=== PATIENT | female | born 1985 | race Caucasian/White ===

== ENCOUNTER 2019-08-03 14:16 | Outpatient (CLI) | payer BC, SELFPAY ==
--- NOTE | ~2019-08-03 | US_ITS ---
US thyroid INDICATION: Follow-up thyroid nodule TECHNIQUE: Real-time sonographic images of the thyroid gland were obtained. COMPARISON: No prior studies for comparison. FINDINGS: The right thyroid lobe measures 5.8 x 1.8 x 1.6 cm. The left thyroid lobe measures 5.5 x 1 .5 x 1.7 cm. There is heterogeneous echotexture and echogenicity throughout the thyroid gland. There is a focus 4 mm hypoechoic nodule of the left lobe, likely benign.. Normal vascular flow is present. IMPRESSION: 1. Hypoechoic 4 mm left thyroid nodule, likely benign. 2: Mildly enlarged heterogeneous thyroid echotexture. Reviewed, dictated and finalized at location A. ENSER CLEANER
== END 2019-08-03 14:17 ==
PROVIDERS: PCP Emergency Medicine; Visit Provider Emergency Medicine
DX: E04.1 Nontoxic single thyroid nodule (principal)
CPT/HCPCS: 76536

== ENCOUNTER 2021-06-24 11:33 | Outpatient (CLI) | payer BC, SELFPAY ==
--- NOTE | ~2021-06-24 | US_ITS ---
EXAMINATION: US thyroid DATE: 06/24/2021 12:00 INDICATION: Thyroid nodule. TECHNIQUE: Multiple ultrasound images of the thyroid were obtained. COMPARISON: Ultrasound 08/03/2019 FINDINGS: The right thyroid lobe measures 6.0 x 1.6 x 1.5 cm. The left thyroid lobe measures 5.4 x 1.5 x 1.8 c m. The thyroid demonstrates coarsened echotexture. Vascularity is normal. In the left thyroid lobe, there is an 8 mm solid, hypoechoic, [id number]-[id number] nodule with ill-defined margin without echogenic foci (TI-RADS TR4). IMPRESSION: 1. Small thyroid nodule, likely not clinically significant. No follow-up is needed. Reviewed, dictated and finalized at location B. TABLE FARM MANAGER IMPRESSION: 1. Small thyroid nodule, likely not clinically significant. No follow-up is nee ded.
== END 2021-06-24 11:34 ==
PROVIDERS: PCP Emergency Medicine; Visit Provider Emergency Medicine
DX: E04.1 Nontoxic single thyroid nodule (principal)
CPT/HCPCS: 76536

== ENCOUNTER 2024-06-17 08:06 | Emergency (ER) | payer OTHER, SELFPAY ==
[2024-06-17 08:16] VITALS: BP 146/92; PULSE 73; RESP 16; TEMP 36.6; O2SAT 98
== END 2024-06-17 10:31 | disposition left against medical advice (07) ==
PROVIDERS: PCP Emergency Medicine
DX: H57.89 Other specified disorders of eye and adnexa (principal)
CPT/HCPCS: 99199

== ENCOUNTER 2024-10-16 09:47 | Outpatient (CLI) | payer OTHER, SELFPAY ==
[2024-10-16 11:15] LABS: Basophils Percent Auto 0.4 % (0.2-1.2); Eosinophils Absolute Auto 0.1 K/mm3 (0-0.3); Eosinophils Percent Auto 1.6 % (0-4.4); Hematocrit 40.6 % (37.0-47.0); Immature Granulocyte Absolute 0.02 K/mm3 (0.00-0.031); Immature Granulocyte Percent A 0.3 % (0-0.5); Lymphocytes Absolute Auto 2.54 K/mm3 (0.9-3.2); Lymphocytes Percent Auto 34.8 % (18.3-44.2); Mean Corpuscular Hemoglobin 28.8 pg (26-34); Mean Platelet Volume 8.5 fl (7.4-10.4); Monocytes Absolute Auto 0.4 K/mm3 (0.1-0.6); Monocytes Percent Auto 4.9 % (2.6-8.5); Neutrophils Absolute Auto 4.2 K/mm3 (1.3-6.7); Platelet Count Result 449 k/mm3 (150-375); Red Blood Count 4.51 M/mm3 (4.2-5.4); Red Cell Distribution Width 12.5 % (11.5-14.5); White Blood Count 7.3 K/mm3 (4.5-10.0)
[2024-10-16 11:35] LABS: Alanine Aminotransferase 33 U/L (6-35); Albumin Level 4.7 g/dL (3.5-5.1); Alkaline Phosphatase 69 U/L (38-126); Anion Gap 11 mmol/L (4-12); Aspartate Amino Transferase 33 U/L (14-36); Bilirubin,Total 0.4 mg/dL (0.2-1.3); Blood Urea Nitrogen 21 mg/dL (7-17); Calcium 9.5 mg/dL (8.4-10.2); Carbon Dioxide 25 mmol/L (22-30); Chloride 103 mmol/L (98-107); Estimated Glomerular Filt Rate > 60; Glucose 92 mg/dL (65-110); Potassium 4.2 mmol/L (3.4-5.0); Sodium 139 mmol/L (137-145)
--- OUTSIDE RECORDS SUMMARY | 2024-10-17 11:40 | XMS_ITS | Encounter Summary ---
Author Organization [facility] Address [address] [place] [id number] Care Team Providers Care Respiratory Therapy Technician Name Role Phone Alex Preciado MD Primary Care Provider Encounter Details Date Type Department Care Team (Latest Contact Info) Description 04/22/2018 Abstract [facility] , Chay Coley MD Social History Tobacco Use Types Packs/Day Years Used Date Smoking Tobacco: Never Assessed Comments Unknown Sex and Gender Information Value Date Recorded Sex Assigned at Not on file Legal Sex Female 5:52 PM CDT Gender Identity Not on file Sexual Orientation Not on file documented as of this encounter Plan of Treatment Not on file documented as of this encounter Visit Diagnoses Not on filedocumented in this encounter Care Teams Respiratory Therapy Technician Relationship Specialty Start Date End Date Alex Preciado MD [address] [phone] PCP - General 07/31/16 documented as of this encounter
--- OUTSIDE RECORDS SUMMARY | 2024-10-17 11:40 | XMS_ITS | Clinical Summary ---
Author Organization [facility] Address [address] [place] [id number] Care Team Providers Care Notch Grinder Name Role Phone Alex Preciado MD Primary Care Provider [phone] Social History Tobacco Use Types Packs/Day Years Used Date Smoking Tobacco: Never Assessed Comments Unknown Sex and Gender Information Value Date Recorded Sex Assigned at Not on file Legal Sex Female 5:52 PM CDT Gender Identity Not on file Sexual Orientation Not on file Last Filed Vital Signs Vital Sign Reading Time Taken Comments Blood Pressure 102/70 10/03/2016 10:19 AM CDT Pulse 84 03/26/2016 11:14 AM CDT Temperature - - Respiratory Rate - - Oxygen Saturation - - Inhaled Oxygen Concentration - - Weight 77.1 kg (170 lb) 10/03/2016 10:19 AM CDT Height 156.2 cm (5' 1.5 ) 10/03/2016 10:19 AM CD T Body Mass Index 31.6 10/03/2016 10:19 AM CDT Plan of Treatment Health Maintenance Due Date Last Done Comments Cervical Cancer Screening Pa p Smear (Age 30 to 64) Every 3 Years 1985 Annual Physical 1988 Hepatitis C 2003 Hepatitis B Vaccines (1 of 3 - 19+ 3-dose series) 2004 Cervical Cancer Screening Pa p with HPV Testing (Age 30 to 64) Every 5 Years 2015 Cervical Cancer Screening with HPV 2015 DTaP, Tdap and Td Vaccines ( 2 - Td or Tdap) 06/17/2022 06/17/2012 COVID-19 Vaccine (2023-2 5 season) 2024 HPV Vaccines Aged Out No longer eligi ble based on patient's age to complete this topic Meningococcal B Vaccine Aged Out No l onger eligible based on patient's age to complete this topic Meningococcal Vaccine Aged Out No shimon bonilla eligible based on patient's age to complete this topic Pneumococcal Vaccine: Pediat rics (0 to 5 Years) and At-Risk Patients (6 to 49 Years) Aged Out No longer eligi ble based on patient's age to complete this topic RSV Immunizations Under 20 Months Aged Out No longer eligible based on patient's age to complete this topic Care Teams Notch Grinder Relationship Specialty Start Date End Date Alex Preciado MD [address] [phone] PCP - General 07/31/16
--- OUTSIDE RECORDS SUMMARY | 2024-10-17 11:40 | XMS_ITS | Clinical Summary ---
Author Organization [email or web address] Address [address] [place] [address] Care Team Providers Care Director Of Archives Name Role Phone Melecio Hills MD Primary Care Provider [phone] Source Comments [email or web address],non-owned Affiliates and Associated Physician Practices is amultiple site organization consisting of ambulatory clinics and hospital sitesin [place], [place], [place] and [place]. This disclosure is being madepursuant to the Care Everywhere program and may not contain all information available regarding this patient. Last updated 18.[email or web address] Allergies No known active allergies Medications * Be aware that medications may not be up to date on this document. Alwaysverify current medications with the patient. Adderall XR 20 MG capsule TAKE 1 CAPSULE BY MOUTH ONCE DAILY IN THE MORNING 08/07/2022 Active sertraline (Zoloft) 100 MG tablet Take 1 (one) tablet by mouth once daily 07/05/2022 Active zolpidem (Ambien) 5 MG tablet Take 1 (one) tablet by mouth nightly as needed 08/01/2022 Active Active Problems Problem Noted Date Diagnosed Date Mixed anxiety and depressive disorder 08/29/2022 10/18/2022 Lipoma of face 08/17/2022 Family History Medical History Relation Name Comments None Known Father None Known Mother Relation Name Status Comments Father Mother Social History Tobacco Use Types Packs/Day Years Used Date Smoking Tobacco: Never Tobacco Cessation:Counseling Given: Not Answered Comments Unknown Sex and Gender Information Value Date Recorded Sex Assigned at Not on file Legal Sex Female 5:47 PM HAND SEWER Gender Identity Not on file Sexual Orientation Not on file Last Filed Vital Signs Vital Sign Reading Time Taken Comments Blood Pressure 127/85 10/05/2022 3:45 PM CDT Pulse 88 10/05/2022 3:45 PM CDT Temperature 36.4 C (97.5 F) 10/05/2022 3:45 PM CDT Respiratory Rate 20 10/05/2022 3:45 PM CDT Oxygen Saturation 99% 10/05/2022 3:45 PM CDT Inhaled Oxygen Concentration - - Weight 93 kg (205 lb) 10/05/2022 3:45 PM CDT Height 154.9 cm (5' 1 ) 10/05/2022 3:45 PM CDT Body Mass Index 38.73 10/05/2022 3:45 PM CDT Plan of Treatment Health Maintenance Due Date Last Done Comments HIV SCREENING 2000 HEPATITIS C SCREENING 07/11/2003 DTAP/TDAP/TD VACCINES (1 - Tdap) 2004 HEPATITIS B VACCINE (1 of 3 - 19+ 3-dose series) 2004 COVID-19 VACCINE (1 - 2023-2 5 season) 2024 DEPRESSION SCREENING 06/17/2024 INFLUENZA VACCINE (Season Ended) 2025 PAP SMEAR 08/28/2025 08/28/2022 ZOSTER VACCINE (1 of 2) 2035 HIB VACCINE Aged Out No longer eligi ble based on patient's age to complete this topic HPV VACCINE Aged Out No longer eligi ble based on patient's age to complete this topic MENINGOCOCCAL (Group B) VACC INE SHARED DECISION-MAKING Aged Out No longer eligibl e based on patient's age to complete this topic MENINGOCOCCAL GROUPS A/C/Y/W VACCINE Aged Out No longer eligible b ased on patient's age to complete this topic PNEUMOCOCCAL VACCINE Aged Out No long er eligible based on patient's age to complete this topic Insurance [facility] [address] Care Teams Director Of Archives Relationship Specialty Start Date End Date Melecio Hills MD PCP - General Family Medicine 02/06/19
--- OUTSIDE RECORDS SUMMARY | 2024-10-17 11:40 | XMS_ITS | Continuity of Care Document ---
Author Organization [facility] Address [address] [place] [address] [place] [address] Phone Care Team Providers Care Residential Mortgage Underwriter Name Role Phone Melecio Hills MD Unavailable Unavailable Allergies, Adverse Reactions, Alerts Substance Reaction Status Criticality No Known Allergies Active No Inform ation Medications Medication Instructions Dosage Effective Dates (start - stop) Status Comments Ambien 5 mg tablet take 1 Tablet by oral route every bedtime at bedtime as needed 5 MG - Active avoid driving or operate machines, PRN for insomnia Adderall XR 20 mg capsule,extended release take 1 capsule by oral route every day in the morning - Active Zoloft 100 mg tablet take 1 tablet by oral route every day 100 MG - Active Procedures Procedure Date OFFICE/OUTPATIENT VISIT, EST PREV VISIT, EST, AGE 18-39 OFFICE/OUTPATIENT VISIT, EST OFFICE/OUTPATIENT VISIT, EST OFFICE/OUTPATIENT VISIT, EST OFFICE/OUTPATIENT VISIT, EST OFFICE/OUTPATIENT VISIT, EST OFFICE/OUTPATIENT VISIT, EST PREV VISIT, EST, AGE 18-39 OFFICE/OUTPATIENT VISIT, EST OFFICE/OUTPATIENT VISIT, EST OFFICE/OUTPATIENT VISIT, EST OFFICE/OUTPATIENT VISIT, EST PREV VISIT, EST, AGE 18-39 OFFICE/OUTPATIENT VISIT, EST OFFICE/OUTPATIENT VISIT, EST OFFICE/OUTPATIENT VISIT, EST PREV VISIT, EST, AGE 18-39 OFFICE/OUTPATIENT VISIT, EST OFFICE/OUTPATIENT VISIT, EST OFFICE/OUTPATIENT VISIT, EST OFFICE/OUTPATIENT VISIT, EST OFFICE/OUTPATIENT VISIT, EST OFFICE/OUTPATIENT VISIT, EST OFFICE/OUTPATIENT VISIT, NEW Advance Directives Directive Yes / No Effective Date File Name No Information Encounters Encounter Description Practice Location Reason(s) For Visit Diagnoses Date Provider Providers Copied on Encounter [facility], [address], [place], [place], [address], [place] tel:[phone] [facility] No Information 3 Reinier Majano. [address], [place], [place], [address] , [place]. tel:[phone] [facility], [address], [place], [place], [address], [place] tel:[phone] [facility] No Information 3 Reinier Majano. [address], [place], [place], [address] , [place]. tel:[phone] OFFICE/OUTPA TIENT VISIT, EST [facility], [address], [place], [place], [address], [place] tel:[phone] [facility] ADD (chief complaint) Attention deficitGeneralized Anxiety Disorder 3 Reinier Majano. [address], [place], [place], [address] , [place]. tel:[phone] [facility], [address], [place], [place], [address], [place] tel:[phone] [facility] No Information 3 Reinier Majano. [address], [place], [place], [address] , [place]. tel:[phone] PREV VISIT, EST, AGE 18-39 [facility], [address], [place], [place], [address], [place] tel:[phone] [facility] Medicine physical (chief complaint) Encounter for general adult medical exam w abnormal findingsMixed hyperlipidemiaPrima ry central sleep apneaAttention deficitPrimary insomniaGeneralized Anxiety Disorder 3 Reinier Majano. [address], [place], [place], [address] , [place]. tel:[phone] OFFICE/OUTPA TIENT VISIT, [facility], [address], [place], [place], [address], [place] tel:[phone] [facility] ADD (chief complaint) HTN (chief complaint) Attention deficitEssential (primary) hypertension 3 Reinier Majano. [address], [place], [place], [address] , [place]. [phone] OFFICE/OUTPA TIENT VISIT, [facility], [address] [place] [address], [place] tel:[phone] [facility] insomnia1 (chief complaint) ADD (chief complaint) anxiety1 (chief complaint) weight gain1 (chief complaint) Attention deficitGeneralized Anxiety DisorderAbnormal weight gainPrimary insomnia 2 Reinier Majano. [address], [place], [place], [address] , [place]. [phone] OFFICE/OUTPA TIENT VISIT, [facility], [address] [place] [address], [place] tel:[phone] [facility] ADD (chief complaint) Attention deficit 2 Reinier Majano. [address], [place], [place], [address] , [place]. [phone] OFFICE/OUTPA TIENT VISIT, [facility], [address] [place], [address], [place] tel:[phone] [facility] HLP (chief complaint) ADD (chief complaint) insomnia1 (chief complaint) Attention deficitPrimary insomniaMixed hyperlipidemia 2 Reinier Majano. [address], [place], [place], [address] , [place]. tel:[phone] OFFICE/OUTPA TIENT VISIT, EST [facility], [address], [place], [place], [address], [place] tel:[phone] [facility] Medicine ADD (chief complaint) Attention deficit 2 Reinier Majano. [address], [place], [place], [address] , [place]. tel:[phone] PREV VISIT, EST, AGE 18-39 [facility], [address], [place], [place], [address], [place] tel:[phone] [facility] physical (chief complaint) Encounter for general adult medical exam w abnormal findingsMixed hyperlipidemiaPrima ry insomniaThyroid nodulePrimary central sleep apneaDeviated nasal septumEpidermal cystGeneralized Anxiety Disorder 2 Reinier Majano. [address], [place], [address] , [place]. tel:[phone] OFFICE/OUTPA TIENT VISIT, EST [facility], [address], [place], [place], [address], [place] tel:[phone] [facility] thyroid nodule1 (chief complaint) HLP (chief complaint) vitamin D1 (chief complaint) sleep apnea1 (chief complaint) weight loss1 (chief complaint) HyperlipidemiaThyro id noduleVitamin D deficiency, unspecifiedSleep apneaDeviated nasal septum 2 Reinier Majano. [address], [place], [place], [address] , [place]. tel:[phone] Referring Provider: Melecio Hills [address], [place], [place], [address]. tel:[phone] OFFICE/OUTPA TIENT VISIT, EST [facility], [address], [place], [place], [address], [place] tel:[phone] [facility] thyroid nodule1 (chief complaint) fatigue1 (chief complaint) anxiety1 (chief complaint) HLP (chief complaint) Thyroid noduleFatigueHyperl ipidemiaInsomnia May- 1 Reinier Purcell [address], [place], [place], [address] , [place]. tel:[phone] Referring Provider: Sonny Whitehead [address], [place], [place], [address]. tel:[phone] OFFICE/OUTPA TIENT VISIT, EST [facility], [address], [place], [place], [address], [place] tel:[phone] [facility] Medicine insomnia1 (chief complaint) anxiety1 (chief complaint) Insomnia, unspecifiedGenerali zed Anxiety Disorder Feb- 1 Reinier Purcell [address], [place], [place], [address] , [place]. [phone] Referring Provider: Sonny Whitehead [address], [place], [place], [address]. tel:[phone] PREV VISIT, EST, AGE 18-39 [facility], [address], [place], [place], [address], [place] tel:[phone] [facility] Medicine physical (chief complaint) Thyroid noduleFatigueHyperl ipidemiaGeneralized Anxiety DisorderInsomniaEnc ounter for general adult medical exam w abnormal findings 1 Reinier Purcell [address], [place], [place], [address] , [place]. tel:[phone] Referring Provider: Sonny Whitehead [address], [place], [place], [address]. tel:[phone] OFFICE/OUTPA TIENT VISIT, EST [facility], [address], [place], [place], [address], [place] tel:[phone] [facility] obesity1 (chief complaint) insomnia1 (chief complaint) Insomnia, unspecifiedAbnormal weight gain Mar- 0 Reinier Purcell [address], [place], [place], [address] , [place]. tel:[phone] Referring Provider: Sonny Whitehead [address], [place], [place], [address]. tel:[phone] OFFICE/OUTPA TIENT VISIT, EST [facility], [address], [place], [address], [place] tel:[phone] [facility] HLP (chief complaint) insomnia1 (chief complaint) thyroid (chief complaint) weight1 (chief complaint) FatigueHyperlipidem iaThyroid noduleInsomniaAbnor mal weight gain 0 Reinier Purcell [address], [place], [address] , [place]. tel:[phone] Referring Provider: Sonny Whitehead [address], [place], [place], [address]. tel:[phone] PREV VISIT, EST, AGE 18-39 [facility], [address], [place], [place], [address], [place] tel:[phone] [facility] PHysical (chief complaint) Encounter for general adult medical exam w abnormal findingsHyperlipide miaThyroid noduleAbnormal weight gainInsomnia, unspecifiedFatigue 0 Reinier Purcell [address], [place], [address] , [place]. tel:[phone] Referring Provider: Sonny Whitehead [address], [place], [place], [address]. tel:[phone] OFFICE/OUTPA TIENT VISIT, EST [facility], [address], [place], [address], [place] tel:[phone] [facility] thyroid nodule1 (chief complaint) insomnia1 (chief complaint) anxiety1 (chief complaint) HLP (chief complaint) InsomniaAnxiety disorder, unspecifiedThyroid noduleHyperlipidemi aEncounter for STD screening 0-201 9 Reinier Purcell [address], [place], [place], [address] , [place]. tel:[phone] OFFICE/OUTPA TIENT VISIT, [facility], [address], [place], [place], [address], [place] tel:[phone] [facility] insomnia1 (chief complaint) weight1 (chief complaint) thyroid1 (chief complaint) Insomnia, unspecifiedDisorder of thyroid, unspecifiedAbnormal weight gain 9 Reinier Majano. [address], [place], [address] , [place]. [phone] OFFICE/OUTPA TIENT VISIT, [facility], [address], [place], [address], [place] tel:[phone] [facility] weight1 (chief complaint) thyroid1 (chief complaint) insomnia1 (chief complaint) anxiety1 (chief complaint) Body mass index (BMI) 35.0-35.9, adultInsomnia, unspecifiedDisorder of thyroid, unspecifiedAnxiety disorder, unspecified 9 Reinier Majano. [address], [place], [place], [address] , [place]. [phone] OFFICE/OUTPA TIENT VISIT, [facility], [address], [place], [address], [place] tel:[phone] [facility] weight gain1 (chief complaint) Abnormal weight gainDisorder of thyroid, unspecified 8 Reinier Majano. [address], [place], [place], [address] , [place]. [phone] Referring Provider: Melecio Hills [address], [place], [place], [address]. tel:[phone] OFFICE/OUTPA TIENT VISIT, [facility], [address], [place], [place], [address], [place] tel:[phone] [facility] insomnia1 (chief complaint) anxiety1 (chief complaint) thyroid1 (chief complaint) InsomniaAnxiety disorder, unspecifiedDisorder of thyroid, unspecifiedBody mass index (BMI) 35.0-35.9, adult 8 Hills Melecio. [address], [place], [place], [address] , [place]. tel:[phone] Referring Provider: Melecio Hills, [address], [place], [place], [address]. tel:[phone] OFFICE/OUTPA TIENT VISIT, [facility], [address], [place], [place], [address], [place] tel:[phone] [facility] Physical (chief complaint) Encntr for general adult medical exam w/o abnormal findingsInsomnia, unspecifiedAnxiety disorder, unspecified 8 Reinier Majano. [address], [place], [place], [address] , [place]. tel:[phone] Family History Family Member Type Diagnosis Age At Onset Mother Problem (finding) Alive and well Problem (finding) Family history of renal failure, on dialysis, CHF Payers Payer name Insurance type Covered green party ID Authoriza tion(s) No Information Social History Type Description Quantity Date Captured Comments Alcohol Use Details Unknown Caffeine Use Details Unknown Tobacco Use Status No Information Smoking Status No Information Sex Female Chief Complaint And Reason For Visit No Information Plan Of Treatment Date Type Action Status Goal Special diet education compl eted Goal Special diet education compl eted Goal Special diet education compl eted Goal Special diet education compl eted Goal Prescribed dietary intake co mpleted Referral Ordered: Otolaryngology (related to Deviated nasal septum) ordered Referral Ordered: Referrals: Otolaryngology. Evaluate and treat ordered Referral Ordered: SLEEP STUDY, ATTENDED ordered Referral Ordered: US THYROID ordered History Of Present Illness Encounter Date Complaint History Of Prese nt Illness ADD Patient has ADD. Patient has inattentive type. Patient feels scatterbrained. Patient feel poor focus and difficulty completing tasks. Patient states that Adderall is helping with symptoms. Patient feels more focused. Pt feels more energy. Patient denies any headache, dry mouth, headache, chest pain. Patient denies any appetite loss. physical Pt needs annual physical Pt has chronic anxiety and depression Pt doing ok with zoloft Pt needs refill Pt denies any suicidal or homicidal thought Pt denies any crying spells. Pt has insomnia, Pt takes ambien and doing ok pt has ADD. Pt doing ok with adderall Pt has sleep apnea Pt does not want to try CPAP Pt is obese .Pt denies any other complaints ADD Patient has ADD. Patient has inattentive type. Patient feels scatterbrained. Patient feel poor focus and difficulty completing tasks. Patient states that Adderall is helping with symptoms. Patient feels more focused. Pt feels more energy. Patient denies any headache, dry mouth, headache, chest pain. Patient denies any appetite loss. HTN Pt has HTN. Pt d enies any chest pain or headache. insomnia1 pt has chronic i nsomnia Pt takes ambien. Pt needs refilled. Pt transferred the script to [place] during vacation but she only got 30 pills instead of 90. ADD Pt has ADD Pt willis s been taking concerta but she feels that she has rather flat affect while on concerta and she does not feel any emotions while on concerta. Her mom is a psychiatrist out of state and suggested her to try Adderall XR instead . anxiety1 Pt has chronic a nxiety and depression. Pt has been taking zoloft for long time and she states that her mood is well controlled Pt started to feel some flat affect since starting to take concerta recently. Pt denies any suicidal or homicidal thought Pt denies any crying spells weight gain1 Pt has been gain ing weight due to poor life style .Pt does not diet and exercise. Pt is not very physically active ADD Pt has history o f ADD, inattentive type Pt doing well with concerta. Pt feels more energy and more focused and she can handle stress much better with concerta. Pt is wondering about higher dose of concerta. Pt denies any side effects HLP Pt has not been taking crestor. Pt is working on diet and exercise. Pt is noncompliant. Pt also has not done lab work insomnia1 Pt has chronic i nsomnia Pt has mild sleep apnea but she does not want to use cpap. Pt takes ambien and she wants it refilled. ADD Patient has ADD. Patient has inattentive type. Patient feels scatterbrained. Patient feel poor focus and difficulty completing tasks. Patient states that concerta is helping with symptoms. Patient feels more focused. Pt feels more energy. Patient denies any headache, dry mouth, headache, chest pain. Patient denies any appetite loss. Pt overall feels great with concerta ADD Pt has been havi ng ADD symptoms. Pt has more responsibility at work recently and she feels overwhelmed and unable to focus and concentrate and she has been performing poorly at work. Pt states that she always has some ADD symptoms even back in high school but she was never treated. pt states that her ADD symptoms are affecting her work now. physical Pt needs annual physical. Pt has HLP Pt is noncompliant with crestor. Pt takes crestor PRN only? Pt denies any myalgia, Pt has chronic insomnia Pt takes ambien qhs and doing ok. Pt has mild sleep apnea. Pt states that she no longer feels fatigue and she does not want to use cpap. Pt has chronic anxiety and depression. P takes zoloft and doing ok. Pt denies any suicidal or homicidal thought. Pt denies any crying spells. Pt has a small cystic spot on forehead for several months. Pt denies any pain ,Pt states that it is soft and not itching. weight loss1 Pt has been work ing on exercise and is trying to lose weight intentionally Pt denies any nausea, vomiting, appetite loss, early satiety, change of bowel, GI bleeding, etc sleep apnea1 Pt has mild slee p apnea with chronic fatigue. Pt denies any trouble with breathing at night Pt does snore at night Pt has mild sleep apnea. Pt states that she has history of deviated septum with chronic nasal congestion .Pt denies any sinus drainage thyroid nodule1 Pt has benign th yroid nodule Pt denies any dysphagia or neck pain her TSh is ok. Thyroglobulin is borderline high. HLP Pt has HLP. Pt i s not on any diet vitamin D1 Pt has low vitam in D. thyroid nodule1 Pt has history o f mild thyroid nodule. Pt denies any dysphagia or neck pain. Pt has been noncompliant with endo referral or repeat thyroid ultrasound. Her thyroid is slightly enlarged. fatigue1 Pt c/o feeling e xtremely fatigue, foggy brained, unable to focus and concentrate, short term memory loss, day time irritability for long time. Pt also snores. Pt denies any headache. Pt states that she fees tired from the moment she wakes up until bedtime. Pt has been noncompliant with sleep study. She recently visited her mom who is also a physician who told her that she snores and recommend her to get the sleep study done anxiety1 Pt has chronic a nxiety and depression Pt takes zoloft and doing ok Pt denies any suicidal or homicidal thought. Pt denies any crying spells. Pt also has chronic insomnia and she takes ambien qhs and doing ok. pt denies waking up at night with difficulty of breathing HLP Pt has HLP. Pt i s not on any diet. insomnia1 Pt has chronic i nsomnia Pt takes ambien qhs and doing ok. Pt denies any snoring or fatigue anxiety1 Pt has chronic a nxiety and depression Pt takes zoloft and doing ok Pt denies any suicidal or homicidal thought. Pt denies any crying spells physical Pt needs annual physical Pt has anxiety and depression with insomnia. Pt takes zoloft and ambien and doing ok. Pt denies any suicidal or homicidal thought Pt denies any crying spells. Pt denies any snoring or fatigue and she did not do sleep study. Pt states that fatigue resolved Pt also has thyroid nodule. Pt denies any dysphagia or neck pain .Pt did not follow up with endo. Pt did not do TFTs. Pt overall feels well. Pt has been diet and exercising and she lost some weight as well. obesity1 Pt just finished phentermine x 3 months recently and she is in between phentermine. Pt denies any weight gain Pt denies any chest pain or headache. insomnia1 Pt needs ambien refilled. Pt recently went to [place] and she had to transfer ambien to [place] and she can not get it transferred back to [place]. Pt is leaving town for work in the next several days .Pt wants refill ambien HLP Pt has HLP. Pt h as not been taking crestor at all Pt states that she does not want to take any medication for HLP Pt is working on diet and exercise insomnia1 Pt has insomnia Pt takes ambien qhs and doing ok Pt has sleep apnea symptoms but she is noncompliant with cpap. Pt feels fatigue ,Pt denies any sob thyroid Pt has stable th yroid nodule Pt denies any dysphagia or neck pain Pt castro snot want to see endo weight1 Pt takes phenter mine daily for weight loss Pt denies any headache or chest pain . PHysical Pt needs annual physical pt feels very worsening fatigue during last 3 months .Pt feels dry skin. Pt has been gaining weigh despite diet and exercising Pt feels thirsty and she drinks a lot of water and she urinate a lot also Pt denies any dysphagia Pt has slightly enlarged thyroid Pt denies any GERD or headache. Pt feels very tired in the morning and getting worse throughout the day Pt feels that she can sleep all day Pt denies any depression or any anxiety .Pt denies any snoring at night. Pt notices more abdominal fat Pt does not have any period due to IUD Pt denies any other complaints thyroid nodule1 Pt has thyroid n odule Pt denies any dysphagia or neck pain pt has borderline elevated TFTs insomnia1 Pt denies any sn oring or any trouble with breathing at night pt needs ambien refilled anxiety1 Pt has anxiety a nd depression, Pt takes zoloft and doing ok Pt denies any suicidal or homicidal thought Pt denies any crying spells HLP Pt is on low fat and low carb diet. insomnia1 Pt has chronic i nsomnia. pt takes ambien and doing ok. pt denies any snoring or any trouble with breathing at night. pt denies any fatigue weight1 Pt has not had p hentermine for several months. Pt wants to get back to phentermine. Pt did feels more energy and she did lose some weight on it. Pt denies any chest pain or headache with phentermine thyroid1 Pt has mild thyr omegaly Pt has mild elevated TFTs. Pt denies any dysphagia or throat pain. Pt is noncompliant with thyroid ultrasound weight1 Pt lost 5 pounds with phentermine. Pt feels more energy with phentermine Pt denies any dry mouth or headache or any side effects thyroid1 Pt has mildly el evated thyroglobulin. Her TSH is ok. Pt denies any dysphagia insomnia1 Pt has insomnia Pt denies any snoring anxiety1 Pt has chronic a nxiety an depression Pt doing ok with zoloft and xanax PRn Pt denies any suicidal or homicidal thought. Pt denies any crying spells weight gain1 Pt has been gain ing weight despite diet and exercise and trying to lose weight on her own. Pt denies any fatigue Pt took phentermine 6 months ago which helped her weight loss. Pt has not had any phentermine for 3 months. Pt denies any chest pain or headache with phentermine insomnia1 Pt has insomnia Pt takes ambien qhs PRN. Pt denies any snoring or any trouble with breathing at night. Pt doing ok with ambien qhs. pt states that she could not sleep without ambien anxiety1 Pt has chronic a nxiety and depression. Pt takes zoloft and doing ok pt denies any suicidal or homicidal thought. Pt denies any crying spells thyroid1 Pt has ? thyrome samra .Pt denies any trouble with swallowing. Pt denies any sore throat Physical Pt needs annual phyical. Pt has chornic anxity and mild depression, P ttakes zolot and doing okPt deneis any suicidal or homiicdal thought. Pt has chornic insomnia P takes ambien qhs and doing ok. Pt denies any snoring or any trouble with breathing at night Pt denies any other complaints Instructions Date Instruction Additional Infor mation Special diet education Related t o Body mass index (BMI) 35.0-35.9, adult Increase physical activity Relat ed to Insomnia Weight management Related to Ins omnia Weight management Related to Ins omnia Special diet education Related t o Body mass index (BMI) 35.0-35.9, adult Weight management Related to Ins omnia, unspecified Increase physical activity Relat ed to Insomnia, unspecified Special diet education Related t o Body mass index (BMI) 35.0-35.9, adult Special diet education Related t o Body mass index (BMI) 36.0-36.9, adult Weight management Related to Abn ormal weight gain Weight management Related to Ins omnia Increase physical activity Relat ed to Insomnia Prescribed dietary intake Relate d to Body mass index (BMI) 35.0-35.9, adult Prescribed Diet Educ ation/Lifestyle Education Regarding Diet Related to Dietary Surveillance and Counseling Increase activity. Related to En cntr for general adult medical exam w/o abnormal findings Perform monthly self breast examinations. Related to Encntr for general adult medical exam w/o abnormal findings Prescribed Activity and Exercise Education Related to Dietary Surveillance and Counseling Assessments Type Assessment Date No Information
--- OUTSIDE RECORDS SUMMARY | 2024-10-17 11:40 | XMS_ITS | Encounter Summary ---
Author Organization [facility] Healthcare Address [address] [place] [address] Care Team Providers Care Timber Harvester Operator Name Role Phone Radha Kaye NP Primary Care Provider Encounter Details Date Type Department Care Team (Late st Contact Info) Description 10/08/2024 Results Follow-Up [facility] Medical Group Convenient Care at [address] [address] Ana Mcclendon NP [address] [place] [address] [address] [place] [address] Social History Tobacco Use Types Packs/Day Years Used Date Smoking Tobacco: Never Assessed Comments Unknown Sex and Gender Information Value Date Recorded Sex Assigned at Not on file 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 Patient expressed understanding of negative throat culture. * Result Encounter Note - Brenda Downey LPN - 10/08/2024 8:12 AM CDT LVM for pt to return call to clinic to notify them of labs results. * Result Encounter Note - Ana Mcclendon NP - 10/08/2024 7:39 AM CDT Please alert patient of negative strep culture. Patient should continue tylenol/ibuprofen as directed for discomfort and f/u with PCP if symptoms persist. documented in this encounter Plan of Treatment Not on file documented as of this encounter Visit Diagnoses Not on filedocumented in this encounter Additional Health Concerns Infection Onset Date Last Indicated Resolved Time Influenza, adult 10/06/2024 10/06/2024 10/13/2024 3:05 AM CDT documented as of this encounter Care Teams Timber Harvester Operator Relationship Specialty Start Date End Date Radha Kaye NP [facility] [address] [address] PCP - General Nurse Practitioner 10/06/24 documented as of this encounter
--- OUTSIDE RECORDS SUMMARY | 2024-10-17 11:40 | XMS_ITS | Clinical Summary ---
Author Organization [facility] Address [address] [place] [address] Care Team Providers Care Cutter Plastics Rolls Name Role Phone Radha Kaye NP Primary Care Provider Allergies No known active allergies Medications benzonatate (TESSALON) 100 mg capsule TAKE 1 CAPSULE BY MOUTH EVERY 8 HOURS NEEDED Active dextroamphetami ne-amphetamine XR (ADDERALL XR) 20 mg 24 hr capsule Take by mouth daily Active levonorgestreL (Mirena) IUD Take by intrauterine route. Active sertraline (ZOLOFT) 100 mg tablet TAKE 1.5 TABLETS BY MOUTH EVERY DAY Active spironolactone (ALDACTONE) 100 mg tablet Take 1 tablet (100 mg total) by mouth daily with lunch 5 Active zolpidem (AMBIEN) 5 mg tablet Take 1 tablet (5 mg total) by mouth nightly Active lidocaine viscous (XYLOCAINE) 2 % solutionIndicat ions:Influenza A Apply 10 mL to the mouth or throat every 6 (six) hours as needed (sore throat) May mix with 30 ml of Mylanta 100 mL 5 Active Active Problems No known active problems Encounters Date Type Department Care Team Description 10/08/2024 Results Follow-Up [facility] Medical [facility] Convenient Care at [address] [address] Ana Mcclendon NP 10/06/2024 11:01 PM CDT - 10/06/2024 11:59 PM CDT Hospital Encounter [address] [address] Influenza A Discharge Disposition: Discharge to home or self care 10/06/2024 11:30 AM CDT Office Visit [facility] Medical Group [facility] Care at [address] [address] Kelly Pierson NP Influenza A (Primary Dx) from Last 3 Months Social History Tobacco Use Types Packs/Day Years Used Date Smoking Tobacco: Never Assessed Comments Unknown Sex and Gender Information Value Date Recorded Sex Assigned at Not on file 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 Gender Identity Not on file Sexual Orientation Not on file Last Filed Vital Signs Vital Sign Reading Time Taken Comments Blood Pressure 132/80 10/06/2024 11:11 AM CDT Pulse 95 10/06/2024 11:11 AM CDT Temperature 37.2 C (99 F) 10/06/2024 11:11 AM CDT Respiratory Rate 24 10/06/2024 11:11 AM CDT Oxygen Saturation 99% 10/06/2024 11:11 AM CDT Inhaled Oxygen Concentration - - Weight 96.2 kg (212 lb) 10/06/2024 11:11 AM CDT Height - - Body Mass Index - - Plan of Treatment Health Maintenance Due Date Last Done Comments Cervical Cancer Screening 1985 Depression Screening 1985 Hepatitis C Screening 1985 DTaP/Tdap/Td Vaccine (1 - Tdap) 1996 Varicella Vaccines (1 of 2 - 13+ 2-dose series) 1998 Hepatitis B Screening 2003 Regular Well Visit/Exam 18-64 2003 Covid-19 Vaccine ( season) 2024 06/06/2022, 04/21/2021, 10/29/2020, Additional history exists Influenza Vaccine (Season Ended) 2025 06/06/2022, 04/21/2021 HPV Vaccines Aged Out No longer eligi ble based on patient's age to complete this topic Pneumococcal vaccine <65 Aged Out No longer eligible based on patient's age to complete this topic Procedures Procedure Name Priority Date/Time Associated Diagnosis Comments THROAT CULTURE Routine 10/06/2024 11:35 AM CDT Influenza A POC INFLUENZA A/B, COVID-19 ANTIGEN Routine 10/06/2024 11:23 AM CDT Influenza A POCT RAPID STREP Routine 10/06/2024 11:2 3 AM CDT Influenza A from Last 3 Months Results * Throat culture Throat (10/06/2024 11:35 AM CDT) Report Final Report: No growth of pathogens. Comment:Testing performed by : [facility], [address] [place]., [address] Throat 10/06/2024 11:3 5 AM CDT 10/07/2024 5:53 AM CDT Narrative ELO ÁLVAREZ - 10/08/2024 1:30 AM CDT Testing performed by [facility] Microbiology Laboratory ([phone]). Kelly Pierson NP LAB MICROBIOLOGY - GENERAL ORDERABLES Final Result ELO [address] Department [place] [address] * (ABNORMAL) POC Influenza A/B, COVID-19 antigen (10/06/2024 11:23 AM CDT) [facility] Influenza A Ag, POC Positive(A) Negative [facility] Influenza B Ag, POC Negative Negative [facility] COVID-19 Ag POC Presumptive Negative Presumptive Negative, Invalid [facility] Nasal 10/06/2024 11:2 3 AM CDT Kelly Pierson NP POINT OF CARE TEST ORDERAB LES Final Result [facility] [address] [place] [address] * POCT rapid strep A (10/06/2024 11:23 AM CDT) Pathologist [facility] Rapid Strep A, POC Negative Negative Swab 10/06/2024 11:2 3 AM CDT Kelly Pierson REGIONAL CLIMATE CHANGE ANALYST POINT OF CARE TEST ORDERAB LES Final Result from Last 3 Months Insurance [facility] [employer] Care Teams Cutter Plastics Rolls Relationship Specialty Start Date End Date Radha Kaye NP [address] [place] [address] [place] [address] PCP - General Nurse Practitioner 10/06/24
--- OUTSIDE RECORDS SUMMARY | 2024-10-17 11:40 | XMS_ITS | Referral Summary ---
Author Organization [facility] Address [address] [place] [address] Care Team Providers Care Chief Guard Name Role Phone Radha Kaye NP Primary Care Provider [phone] Encounters Date Type Department Care Team Description 10/08/2024 Results Follow-Up [facility] Medical [facility] Convenient Care at [address] [address] Ana Mcclendon NP 10/06/2024 11:01 PM CDT - 10/06/2024 11:59 PM CDT Hospital Encounter [address] [address] Influenza A Discharge Disposition: Discharge to home or self care 10/06/2024 11:30 AM CDT Office Visit [facility] Convenient Care at [address] [address] Kelly Pierson NP Influenza A (Primary Dx) from Last 3 Months Allergies No known active allergies Medications benzonatate [...] mg total) by mouth daily with lunch Active zolpidem (AMBIEN) 5 mg tablet Take 1 tablet (5 mg total) by mouth nightly Active lidocaine viscous (XYLOCAINE) 2 % solutionIndicat ions:Influenza A Apply 10 mL to the mouth or throat every 6 (six) hours as needed (sore throat) May mix with 30 ml of Mylanta 100 mL Active Active Problems No known active problems Social History Tobacco Use Types Packs/Day Years Used Date Smoking Tobacco: Never Assessed Comments Unknown Sex and Gender Information Value Date Recorded Sex Assigned at Not on file 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 Comment:Testing performed by : [facility], [address] [facility], [place]., [address] Throat 10/06/2024 11:3 5 AM CDT 10/07/2024 5:53 AM CDT Narrative CERNER CH - 10/08/2024 1:30 AM CDT Testing performed by [facility] Microbiology Laboratory ([phone]). Kelly Pierson MANAGER PRINT LAB MICROBIOLOGY - GENERAL ORDERABLES Final Result ELO ÁLVAREZ [address] Department [place] [address] * (ABNORMAL) POC Influenza A/B, COVID-19 antigen (10/06/2024 11:23 AM CDT) Influenza A Ag, POC Positive(A) Negative [facility] Influenza B Ag, POC Negative Negative [facility] COVID-19 Ag POC Presumptive Negative Presumptive Negative, Invalid [facility] Nasal 10/06/2024 11:2 3 AM CDT Kelly Pierson MANAGER PRINT POINT OF CARE TEST ORDERAB LES Final Result Performing Organization Address City/[facility] Co de Phone Number [facility] [address] [place] [address] * POCT rapid strep A (10/06/2024 11:23 AM CDT) Rapid Strep A, POC Negative Negative Swab 10/06/2024 11:2 3 AM CDT Kelly Pierson NP POINT OF CARE TEST ORDERAB LES Final Result from Last 3 Months Insurance [facility] H[facility]/PPO Address: [address] [address] [place] [address] [facility] CHOICE PLUS [facility] HMO/PPO Address: [address] [address] [place] [address] Care Teams Chief Guard Relationship Specialty Start Date End Date Radha Kaye NP [address] [place] [address] [place] [address] PCP - General Nurse Practitioner 10/06/24
[2024-10-17 22:18] LABS: Amphetamines NEGATIVE ng/mL (<500); Barbiturates NEGATIVE ng/mL (<300); Benzodiazepines NEGATIVE ng/mL (<100); Cocaine Metabolite NEGATIVE ng/mL (<150); Marijuana Metabolite NEGATIVE ng/mL (<20); Methadone Metabolite NEGATIVE ng/mL (<100); Opiates NEGATIVE ng/mL (<100); Oxidant NEGATIVE mcg/mL (<200); pH 5.6 (4.5-9.0)
== END 2024-10-16 09:48 | disposition home or self-care (01) ==
PROVIDERS: PCP Nurse Practitioner; Visit Provider Nurse Practitioner
DX: F90.2 Attention-deficit hyperactivity disorder, combined type (principal); Z79.899 Other long term (current) drug therapy; Z13.29 Encounter for screening for other suspected endocrine disorder
CPT/HCPCS: 36415; 80053; 80299; 85025